=== PATIENT | female | born 1935 | race Hispanic/Latino ===

== ENCOUNTER → 2019-02-06 | Outpatient (CLI) | payer OTHER | END | disposition home or self-care (01) | LOC: SHCH 14:54 | PROVIDERS: ATTEND Internal Medicine Cardiovascular Disease | DX: I87.2 Venous insufficiency (chronic) (peripheral) (principal) | CPT/HCPCS: 93970 ==

== ENCOUNTER → 2019-03-23 | Outpatient (CLI) | payer OTHER | END | disposition home or self-care (01) | LOC: SHCH 10:15 | PROVIDERS: ATTEND Internal Medicine Cardiovascular Disease | DX: I82.811 Embolism and thrombosis of superficial veins of right lower extremity (principal) | CPT/HCPCS: 93971 ==

== ENCOUNTER → 2019-04-27 | Outpatient (CLI) | payer OTHER | END | disposition home or self-care (01) | LOC: SHCH 09:02 | PROVIDERS: ATTEND Internal Medicine Cardiovascular Disease | DX: I82.811 Embolism and thrombosis of superficial veins of right lower extremity (principal); Z09 Encounter for follow-up examination after completed treatment for conditions other than malignant neoplasm | CPT/HCPCS: 93971 ==

== ENCOUNTER → 2020-05-26 | Outpatient (CLI) | payer OTHER | END | disposition home or self-care (01) | LOC: SHCH 14:28 | PROVIDERS: ATTEND Internal Medicine Cardiovascular Disease | DX: I87.2 Venous insufficiency (chronic) (peripheral) (principal) | CPT/HCPCS: 93970 ==